=== PATIENT | female | born 1955 | race Caucasian/White ===

== ENCOUNTER 2016-11-07 19:57 | Emergency (ER) | payer BC ==
--- NOTE | 2016-11-10 10:18 | ER ---
ADMIT: 11/07/2016 RM/LOC: [facility] MR#: [id number] [address] DWAYNE KHAN [address] [place] [id number] Emergency Room Report SEX: F AGE: 61 : 1955 DATE: 11/07/2016 ADDENDUM: CHIEF COMPLAINT: Knee pain. HISTORY OF PRESENT ILLNESS: This is a 61-year-old female, who does not have any known injury, but her pain started about 3 days ago at the medial aspect of her left knee. It is very pinpoint tenderness right superior to the tibia. Again, no injury. No fall. There is no swelling. There is no erythema. No warmth. It is very painful and painful with bending the knee. PAST MEDICAL HISTORY: Hypertension, diabetes, colon cancer, T and A, and hysterectomy. MEDICATIONS: Please see nurse's note. ALLERGIES: PENICILLIN. SOCIAL HISTORY: Denies any tobacco, drug, or alcohol use. FAMILY HISTORY: Noncontributory. REVIEW OF SYSTEMS: CONSTITUTIONAL: Denies any fevers, chills, or sweats. CARDIOVASCULAR/RESPIRATORY: Denies any chest pain or shortness of breath. GASTROINTESTINAL/GENITOURINARY: Denies any nausea, vomiting, or diarrhea. MUSCULOSKELETAL: The main complaint is the medial aspect of her left knee. All systems otherwise negative. PHYSICAL EXAMINATION: VITAL SIGNS: Blood pressure is 140/62, pulse is 81, respirations 16, temperature is 97.8 tympanic, and saturation of oxygen is 95% on room air. GENERAL APPEARANCE: The patient is in no acute distress and alert. ADMIT: 11/07/2016 RM/LOC: [facility] MR#: [id number] [address] DWAYNE KHAN [address] [place] [address] Emergency Room Report SEX: F AGE: 61 : 1955 HEART: Regular rate and rhythm. No murmurs, rubs, or gallops. LUNGS: CTA bilaterally. No wheezes, rales, or rhonchi. MUSCULOSKELETAL: When palpating her knee, she is very tender in the medial aspect of her knee. Pain with flexion. There is no swelling, no tenderness in her calf, and no erythema. COURSE IN THE EMERGENCY ROOM: X-ray was done of the knee is negative for any fracture over-read by Dr. Garcia. I am sending her home with [place] for pain. Told her to continue the Aleve. I am sending her home with a knee immobilizer then she is going to follow up with her doctor on Wednesday to further evaluate. CLINICAL IMPRESSION: Right knee pain with possible internal derangement. LANDON Vera / Vish Franks MD / theronl JOB #: [id number] CC: Vish Franks MD, Attending Physician Ismael Carrillo MD, Family Physician
== END 2016-11-07 21:18 | disposition home or self-care (01) ==
LOC: ER 19:57
DX: M25.562 Pain in left knee (principal); I10 Essential (primary) hypertension; E11.9 Type 2 diabetes mellitus without complications; Z85.038 Personal history of other malignant neoplasm of large intestine; Z88.0 Allergy status to penicillin; Z88.5 Allergy status to narcotic agent; Z79.899 Other long term (current) drug therapy